=== PATIENT | male | born 1995 | race African-American/Black ===

== ENCOUNTER 2018-08-25 10:00 | Emergency (ER) | payer MEDICAID ==
[~2018-08-25] VITALS: Ht 175.3 cm; Wt 71.0 kg
[2018-08-25] MEDS ORDERED: KETOROLAC 30MG/ML VIAL IV STA (10:44)
[2018-08-25] MEDS ORDERED: SODIUM CHLORIDE 0.9% 1,000 ML IV ONE (10:44)
[2018-08-25] MEDS ORDERED: METOCLOPRAMIDE HCL 10MG/2ML VIAL IV ONE (10:45)
[2018-08-25] MEDS ORDERED: DIPHENHYDRAMINE 50MG/ML VIAL IV ONE (10:45)
[2018-08-25 13:38] LABS: CLARITY URINE CLEAR (CLEAR); COLOR URINE YELLOW (YELLOW); KETONES URINE NEGATIVE (NEGATIVE); LEUKOCYTE ESTERASE URINE TRACE (NEGATIVE); NITRITE URINE NEGATIVE (NEGATIVE); OCCULT BLOOD URINE NEGATIVE (NEGATIVE); PH URINE 6.5 (4.5-8.0); PROTEIN URINE NEGATIVE (NEGATIVE); SPECIFIC GRAVITY URINE 1.012 (1.005-1.030)
[2018-08-25 13:52] LABS: *AMPHETAMINES SCREEN URINE NEGATIVE (NEGATIVE); CANNABINOID URINE SCREEN PRESUMTIVE POSITIVE (NEGATIVE); PHENCYCLIDINE URINE SCREEN NEGATIVE (NEGATIVE)
[2018-08-25 13:53] LABS: *BARBITURATES SCREEN URINE NEGATIVE (NEGATIVE); *BENZODIAZEPINES SCREEN URINE NEGATIVE (NEGATIVE); *COCAINE SCREEN URINE NEGATIVE (NEGATIVE); METHADONE URINE SCREEN NEGATIVE (NEGATIVE)
[2018-08-25 13:54] LABS: OPIATES URINE SCREEN PRESUMTIVE POSITIVE (NEGATIVE)
[2018-08-25 15:48] VITALS: BP 109/70
== END 2018-08-25 15:50 | disposition home or self-care (01) ==
LOC: ER 10:14
DX: R51 Headache (principal); J45.909 Unspecified asthma, uncomplicated; F12.10 Cannabis abuse, uncomplicated
CPT/HCPCS: 80305; 81003; 87070; 87430; 96374; 96375; 99283; J1200; J1885; J2765; J7030

== ENCOUNTER 2019-07-17 21:29 | Emergency (ER) | payer SELFPAY ==
[~2019-07-17] VITALS: Ht 180.3 cm; Wt 68.0 kg
[2019-07-18] MEDS ORDERED: KETOROLAC 30MG/ML VIAL IV STA (01:16)
[2019-07-18] MEDS ORDERED: ONDANSETRON HCL 4MG/2ML INJ IV STA (01:16)
[2019-07-18] MEDS ORDERED: SODIUM CHLORIDE 0.9% 1,000 ML IV ONE (01:16)
[2019-07-18] MEDS ORDERED: IPRATROPIUM BROMIDE (0.02%) 0.5MG/2.5ML NEB HHN STA (01:29)
[2019-07-18] MEDS ORDERED: ALBUTEROL (0.083%) 2.5MG/3ML NEB HHN STA (01:29)
[2019-07-18 01:48] LABS: HEMATOCRIT. 44.8 % (42.0-52.0); HEMOGLOBIN. 15.6 g/dL (14.0-18.0); MEAN CORPUSCULAR HEMOGLOBIN 30.8 pg (28.0-32.0); MEAN CORPUSCULAR VOLUME 88.4 fL (80.0-94.0); MEAN PLATELET VOLUME 9.5 fl (7.4-10.4); PLATELET 140 x1000/uL (130-400); RED BLOOD CELL COUNT 5.06 mill/uL (4.7-6.1); RED CELL DISTRIBUTION WIDTH 13.3 % (11.6-14.6)
[2019-07-18 01:52] LABS: CHLORIDE 104 mEq/L (98-107)
[2019-07-18 03:10] LABS: PLATELET ESTIMATE NORMAL
[2019-07-18] MEDS ORDERED: IOHEXOL-300 100 ML BOTTLE ONE (05:14)
[2019-07-18 05:43] VITALS: BP 110/63
[2019-07-18 07:25] LABS: CLARITY URINE CLEAR (CLEAR); COLOR URINE YELLOW (YELLOW); KETONES URINE NEGATIVE (NEGATIVE); LEUKOCYTE ESTERASE URINE NEGATIVE (NEGATIVE); NITRITE URINE NEGATIVE (NEGATIVE); OCCULT BLOOD URINE NEGATIVE (NEGATIVE); PH URINE 5.5 (4.5-8.0); PROTEIN URINE NEGATIVE (NEGATIVE); UROBILINOGEN URINE 0.2 E.U./dL (0.2-1.0)
== END 2019-07-18 06:02 | disposition home or self-care (01) ==
LOC: ER 21:29
DX: R10.30 Lower abdominal pain, unspecified (principal); M54.5 Low back pain; I10 Essential (primary) hypertension; R11.10 Vomiting, unspecified; J45.909 Unspecified asthma, uncomplicated; G43.909 Migraine, unspecified, not intractable, without status migrainosus; R50.9 Fever, unspecified; F12.10 Cannabis abuse, uncomplicated
CPT/HCPCS: 36415; 71045; 74177; 80053; 81003; 83690; 85025; 94640; 96374; 96375; 99284; J1885; J2405; J7030; J7611; Q9967; Z7610